=== PATIENT | female | born 1970 | race Caucasian/White ===

== ENCOUNTER 2024-10-01 06:00 | Emergency (ER) | payer MEDICAID ==
[2024-10-01] MEDS ORDERED: Sodium Chloride 0.9% 10 ML Syringe FLUSH PRN (06:25)
[2024-10-01 06:33] LABS: BASOPHILS ABSOLUTE AUTO 0.1 x10^3/uL (0.0-0.2); BASOPHILS PERCENT AUTO 0.4 % (0.2-1.2); EOSINOPHILS ABSOLUTE AUTO 0.2 x10^3/uL (0.0-0.5); EOSINOPHILS PERCENT AUTO 0.8 % (0.0-4.0); HEMATOCRIT 29.5 % (33.0-47.0); HEMOGLOBIN 10.6 g/dL (12.0-16.0); IMMATURE GRAN ABSOLUTE AUTO 0.03 x10^3/uL (0.00-0.07); LYMPHOCYTES ABSOLUTE AUTO 1.8 x10^3/uL (1.0-4.8); LYMPHOCYTES PERCENT AUTO 9.9 % (25.0-50.0); MEAN CORPUSCULAR HEMOGLOBIN 31.6 pg (26.0-32.0); MEAN CORPUSCULAR HGB CONC 35.9 g/dL (32.0-36.0); MEAN CORPUSCULAR VOLUME 88.1 fL (78.0-93.0); MONOCYTES ABSOLUTE AUTO 0.7 x10^3/uL (0.0-0.8); MONOCYTES PERCENT AUTO 3.7 % (2.0-11.0); RED BLOOD CELL COUNT 3.35 x10^6/uL (4.00-5.50); WHITE BLOOD CELL COUNT,WBC 17.7 x10^3/uL (4.0-10.0)
[2024-10-01] MEDS: Lactated Ringers 1,000 ML IV ONE (06:40)
[2024-10-01 06:46] LABS: PLATELET COUNT,PLT 357 x10^3/uL (130-400)
[2024-10-01 06:56] LABS: A/G RATIO 1.15; ALANINE AMINOTRANSFERASE,ALT 40 U/L (14-59); ALBUMIN 3.9 g/dL (3.4-5.0); ALKALINE PHOSPHATASE 119 U/L (46-116); ASPARTATE AMNIOTRANSFERASE,AST 37 U/L (15-37); BILIRUBIN TOTAL 1.3 mg/dL (0.2-1.0); BLOOD UREA NITROGEN,BUN 6 mg/dL (7-18); C-REACTIVE PROTEIN 4.51 mg/dL (<=0.50); CALCIUM 9.6 mg/dL (8.5-10.1); CARBON DIOXIDE,CO2 22 mmol/L (21-32); CHLORIDE,CL 97 mmol/L (98-107); CREATININE 1.3 mg/dL (0.55-1.02); GLUCOSE RANDOM 113 mg/dL (70-99); PROTEIN TOTAL,TP 7.3 g/dL (6.4-8.2); SODIUM,NA 136 mmol/L (136-145)
[2024-10-01 06:59] LABS: ESTIMATED GFR 49 mL/min (>=60)
[2024-10-01] MEDS: Ondansetron 4 MG/2 ML SDV IVPUSH ONE (06:59)
[2024-10-01] MEDS: LORazepam 2 MG/ML SDV IVPUSH ONE (07:00)
[2024-10-01] MEDS: Iopamidol 612 MG/ML 100 ML Bottle IVPUSH ONE (08:01)
[2024-10-01] MEDS: Potassium Bicarbonate 25 MEQ Tab.EFF PO STA (08:07)
[2024-10-01] MEDS: Prochlorperazine 10 MG/2 ML SDV IV ONE (08:11)
== END 2024-10-01 08:19 | disposition home or self-care (01) ==
LOC: VM.ED 06:00
DX: K52.9 Noninfective gastroenteritis and colitis, unspecified (principal); E86.0 Dehydration
CPT/HCPCS: 36415; 74177; 80053; 85025; 86140; 96374; 96375; 99284; 99284-25; A9270-GY; J0780; J2060; J2405; J7120; Q9967

== ENCOUNTER 2024-10-02 12:43 | Emergency (ER) | payer MEDICAID ==
[2024-10-02] MEDS ORDERED: Sodium Chloride 0.9% 1,000 ML IV ONE (12:57)
[2024-10-02] MEDS ORDERED: Sodium Chloride 0.9% 10 ML Syringe FLUSH PRN (12:57)
[2024-10-02] MEDS ORDERED: Ondansetron 4 MG/2 ML SDV IM ONE (12:57)
[2024-10-02 13:18] LABS: BASOPHILS ABSOLUTE AUTO 0.1 x10^3/uL (0.0-0.2); BASOPHILS PERCENT AUTO 0.5 % (0.2-1.2); EOSINOPHILS ABSOLUTE AUTO 0.1 x10^3/uL (0.0-0.5); EOSINOPHILS PERCENT AUTO 1.5 % (0.0-4.0); HEMATOCRIT 28.4 % (33.0-47.0); HEMOGLOBIN 9.9 g/dL (12.0-16.0); IMMATURE GRAN ABSOLUTE AUTO 0.04 x10^3/uL (0.00-0.07); LYMPHOCYTES ABSOLUTE AUTO 2.1 x10^3/uL (1.0-4.8); LYMPHOCYTES PERCENT AUTO 21.7 % (25.0-50.0); MEAN CORPUSCULAR HEMOGLOBIN 31.5 pg (26.0-32.0); MEAN CORPUSCULAR HGB CONC 34.9 g/dL (32.0-36.0); MEAN CORPUSCULAR VOLUME 90.4 fL (78.0-93.0); MONOCYTES ABSOLUTE AUTO 0.5 x10^3/uL (0.0-0.8); MONOCYTES PERCENT AUTO 4.8 % (2.0-11.0); NEUTROPHILS ABSOLUTE AUTO 6.7 x10^3/uL (1.8-7.7); NEUTROPHILS PERCENT AUTO 71.1 % (50.0-80.0); PLATELET COUNT,PLT 327 x10^3/uL (130-400); RED BLOOD CELL COUNT 3.14 x10^6/uL (4.00-5.50); WHITE BLOOD CELL COUNT,WBC 9.5 x10^3/uL (4.0-10.0)
[2024-10-02] MEDS: Lactated Ringers 1,000 ML IV ONE (13:31)
[2024-10-02 13:34] LABS: A/G RATIO 1.16; ALBUMIN 3.6 g/dL (3.4-5.0); BILIRUBIN TOTAL 0.7 mg/dL (0.2-1.0); C-REACTIVE PROTEIN 3.68 mg/dL (<=0.50); CALCIUM 8.9 mg/dL (8.5-10.1); CREATININE 1.2 mg/dL (0.55-1.02); EST CRCL DRUG DOSING (CG) 54.69 mL/min; POTASSIUM,K 3.8 mmol/L (3.5-5.1); PROTEIN TOTAL,TP 6.7 g/dL (6.4-8.2)
[2024-10-02 13:35] LABS: ANION GAP 17.8 mmol/L (5-15)
[2024-10-02] MEDS: Ondansetron 4 MG/2 ML SDV IVPUSH ONE (14:32)
[2024-10-02] MEDS ORDERED: Famotidine 20 MG Tab PO SCH (21:00)
== END 2024-10-02 15:45 | disposition designated cancer center or children's hospital (05) ==
LOC: VM.ED 12:43
DX: A04.72 Enterocolitis due to Clostridium difficile, not specified as recurrent (principal); F41.9 Anxiety disorder, unspecified; F10.20 Alcohol dependence, uncomplicated; Z79.899 Other long term (current) drug therapy
CPT/HCPCS: 36415; 80053; 83605; 85025; 86140; 96361; 96374; 99284; 99285-25; J2405; J7120

== ENCOUNTER 2024-10-08 13:02 | Inpatient (IN) | payer MEDICAID ==
[2024-10-08] MEDS ORDERED: Sodium Chloride 0.9% 10 ML Syringe FLUSH PRN (13:11)
[2024-10-08 13:32] LABS: BASOPHILS PERCENT AUTO 0.2 % (0.2-1.2); HEMATOCRIT 31.6 % (33.0-47.0); HEMOGLOBIN 11.3 g/dL (12.0-16.0); IMMATURE GRAN ABSOLUTE AUTO 0.04 x10^3/uL (0.00-0.07); LYMPHOCYTES ABSOLUTE AUTO 1.4 x10^3/uL (1.0-4.8); LYMPHOCYTES PERCENT AUTO 11.2 % (25.0-50.0); MEAN CORPUSCULAR HEMOGLOBIN 31.6 pg (26.0-32.0); MEAN CORPUSCULAR HGB CONC 35.8 g/dL (32.0-36.0); MEAN CORPUSCULAR VOLUME 88.3 fL (78.0-93.0); MONOCYTES ABSOLUTE AUTO 0.6 x10^3/uL (0.0-0.8); MONOCYTES PERCENT AUTO 4.6 % (2.0-11.0); NEUTROPHILS ABSOLUTE AUTO 10.2 x10^3/uL (1.8-7.7); NEUTROPHILS PERCENT AUTO 83.7 % (50.0-80.0); PLATELET COUNT,PLT 275 x10^3/uL (130-400); RED BLOOD CELL COUNT 3.58 x10^6/uL (4.00-5.50); WHITE BLOOD CELL COUNT,WBC 12.2 x10^3/uL (4.0-10.0)
[2024-10-08] MEDS: Ondansetron 4 MG/2 ML SDV IVPUSH ONE (13:39)
[2024-10-08] MEDS: Lactated Ringers 1,000 ML IV ONE (13:39)
[2024-10-08] MEDS: LORazepam 2 MG/ML SDV IVPUSH ONE (13:41)
[2024-10-08] MEDS: Labetalol 20 MG/4 ML Syringe IVPUSH ONE (13:44)
[2024-10-08 13:52] LABS: PROTHROMBIN TIME 10.6 SEC (8.9-11.5); PTT,PARTIAL THROMBOPLSTIN TIME 24.3 SEC (21.9-33.8)
[2024-10-08 13:54] LABS: A/G RATIO 1.23; ALANINE AMINOTRANSFERASE,ALT 48 U/L (14-59); ALBUMIN 4.3 g/dL (3.4-5.0); ALKALINE PHOSPHATASE 124 U/L (46-116); ASPARTATE AMNIOTRANSFERASE,AST 55 U/L (15-37); BILIRUBIN TOTAL 1.2 mg/dL (0.2-1.0); BLOOD UREA NITROGEN,BUN 8 mg/dL (7-18); C-REACTIVE PROTEIN 0.58 mg/dL (<=0.50); CALCIUM 9.3 mg/dL (8.5-10.1); CARBON DIOXIDE,CO2 18 mmol/L (21-32); CHLORIDE,CL 93 mmol/L (98-107); CREATININE 1.5 mg/dL (0.55-1.02); GLUCOSE RANDOM 115 mg/dL (70-99); MAGNESIUM 1.2 mg/dL (1.8-2.4); PROTEIN TOTAL,TP 7.8 g/dL (6.4-8.2); SODIUM,NA 134 mmol/L (136-145)
[2024-10-08 13:58] LABS: ANION GAP 25.5 mmol/L (5-15); ESTIMATED GFR 41 mL/min (>=60); LACTIC ACID 4.1 mmol/L (0.4-2.0); POTASSIUM,K 2.5 mmol/L (3.5-5.1)
[2024-10-08 14:03] LABS: ETHANOL BLOOD MEDICAL < 3 mg/dL (0-3)
[2024-10-08 14:07] LABS: ACETAMINOPHEN 0 ug/ml (10-30)
[2024-10-08] MEDS: NS with KCl 40mEq 1,000 ML IV SCH (14:16)
[2024-10-08] MEDS ORDERED: Flumazenil 0.1 MG/ML 5 ML MDV IVPUSH PRN (15:39)
[2024-10-08] MEDS: Multivitamin Tab PO SCH (17:28)
[2024-10-08] MEDS: PHENobarbitaL sodium 260 MG in Sodium Chloride 0.9% 100 ML IV ONE (17:28)
[2024-10-08] MEDS: Folic Acid 1 MG Tab PO SCH (17:28)
[2024-10-08] MEDS: Propranolol 80 MG Cap.ER PO SCH (17:29)
[2024-10-08] MEDS: Thiamine 100 MG Tab PO SCH (17:29)
[2024-10-08] MEDS: LORazepam 2 MG/ML SDV IV PRN (19:03)
[2024-10-08] MEDS: Magnesium Sulfate/Water Premix 4 GM in Premix Bag 1 BAG IV ONE (19:27)
[2024-10-08] MEDS: cloNIDine 0.1 MG Tab PO SCH (21:49)
[2024-10-08] MEDS: VANCOmycin 125 MG Cap PO SCH (21:50)
[2024-10-08] MEDS: Potassium Chloride 20 MEQ Tab.ER PO SCH (21:50)
[2024-10-09] MEDS: Omeprazole 20 MG Cap.CR PO SCH (06:10)
[2024-10-09 08:33] LABS: BASOPHILS PERCENT AUTO 0.6 % (0.2-1.2); EOSINOPHILS ABSOLUTE AUTO 0.1 x10^3/uL (0.0-0.5); HEMATOCRIT 27.8 % (33.0-47.0); HEMOGLOBIN 9.4 g/dL (12.0-16.0); IMMATURE GRAN ABSOLUTE AUTO 0.01 x10^3/uL (0.00-0.07); LYMPHOCYTES ABSOLUTE AUTO 2.2 x10^3/uL (1.0-4.8); LYMPHOCYTES PERCENT AUTO 42.8 % (25.0-50.0); MEAN CORPUSCULAR HEMOGLOBIN 31.5 pg (26.0-32.0); MEAN CORPUSCULAR HGB CONC 33.8 g/dL (32.0-36.0); MEAN CORPUSCULAR VOLUME 93.3 fL (78.0-93.0); MONOCYTES ABSOLUTE AUTO 0.5 x10^3/uL (0.0-0.8); MONOCYTES PERCENT AUTO 9.6 % (2.0-11.0); NEUTROPHILS ABSOLUTE AUTO 2.3 x10^3/uL (1.8-7.7); NEUTROPHILS PERCENT AUTO 44.8 % (50.0-80.0); PLATELET COUNT,PLT 193 x10^3/uL (130-400); RED BLOOD CELL COUNT 2.98 x10^6/uL (4.00-5.50)
[2024-10-09 08:57] LABS: A/G RATIO 1.14; ALBUMIN 3.2 g/dL (3.4-5.0); BILIRUBIN TOTAL 0.8 mg/dL (0.2-1.0); CREATININE 1.4 mg/dL (0.55-1.02); EST CRCL DRUG DOSING (CG) 46.88 mL/min; MAGNESIUM 2.4 mg/dL (1.8-2.4); POTASSIUM,K 3.8 mmol/L (3.5-5.1)
[2024-10-09] MEDS: Escitalopram 10 MG Tab PO SCH (08:58)
[2024-10-09] MEDS: Furosemide 20 MG Tab PO SCH (08:58)
[2024-10-09] MEDS: PHENobarbital Sodium 65 MG/ML SDV IVPUSH SCH (08:59)
[2024-10-09] MEDS: Lisinopril 20 MG Tab PO SCH (09:01)
[2024-10-09 09:06] LABS: ANION GAP 13.8 mmol/L (5-15)
[2024-10-09 09:29] LABS: AMPHETAMINES SCREEN, URINE NEGATIVE (NEGATIVE); BARBITURATE SCREEN,URINE POSITIVE (NEGATIVE); BENZODIAZEPINES SCREEN,URINE POSITIVE (NEGATIVE); BUPRENORPHINE SCREEN,URINE NEGATIVE (NEGATIVE); COCAINE METABOLITES,URINE NEGATIVE (NEGATIVE); METHADONE SCREEN, URINE NEGATIVE (NEGATIVE); METHAMPHETAMINE SCREEN, URINE NEGATIVE (NEGATIVE); OXYCODONE SCREEN,URINE NEGATIVE (NEGATIVE); PCP SCREEN,URINE NEGATIVE (NEGATIVE); THC SCREEN,URINE 50 NG/ML NEGATIVE (NEGATIVE)
[2024-10-09] MEDS: Haloperidol Lactate 5 MG/ML SDV IV PRN (11:20)
[2024-10-09] MEDS: Sodium Chloride 0.9% 1,000 ML IV ONE ×2 (17:20→22:55)
[2024-10-09] MEDS: Naltrexone 50 MG Tab PO SCH (22:07)
[2024-10-10] MEDS: Ondansetron 4 MG/2 ML SDV IVPUSH PRN (07:44)
[2024-10-10 08:07] LABS: BASOPHILS PERCENT AUTO 0.3 % (0.2-1.2); EOSINOPHILS ABSOLUTE AUTO 0.2 x10^3/uL (0.0-0.5); EOSINOPHILS PERCENT AUTO 3.2 % (0.0-4.0); HEMATOCRIT 25.2 % (33.0-47.0); HEMOGLOBIN 8.2 g/dL (12.0-16.0); IMMATURE GRAN ABSOLUTE AUTO 0.02 x10^3/uL (0.00-0.07); LYMPHOCYTES ABSOLUTE AUTO 2.1 x10^3/uL (1.0-4.8); LYMPHOCYTES PERCENT AUTO 34.6 % (25.0-50.0); MEAN CORPUSCULAR HGB CONC 32.5 g/dL (32.0-36.0); MEAN CORPUSCULAR VOLUME 98.4 fL (78.0-93.0); MONOCYTES ABSOLUTE AUTO 0.5 x10^3/uL (0.0-0.8); MONOCYTES PERCENT AUTO 8.1 % (2.0-11.0); NEUTROPHILS ABSOLUTE AUTO 3.2 x10^3/uL (1.8-7.7); NEUTROPHILS PERCENT AUTO 53.5 % (50.0-80.0); PLATELET COUNT,PLT 175 x10^3/uL (130-400); RED BLOOD CELL COUNT 2.56 x10^6/uL (4.00-5.50)
[2024-10-10 08:28] LABS: ALBUMIN 2.5 g/dL (3.4-5.0); BILIRUBIN TOTAL 0.3 mg/dL (0.2-1.0); CALCIUM 7.8 mg/dL (8.5-10.1); CREATININE 1.1 mg/dL (0.55-1.02); EST CRCL DRUG DOSING (CG) 59.66 mL/min; POTASSIUM,K 4.7 mmol/L (3.5-5.1)
[2024-10-10 08:29] LABS: ANION GAP 12.7 mmol/L (5-15)
[2024-10-10] MEDS: Lactobacillus Rhamnosus GG (Probiotic) Cap PO SCH (09:35)
[2024-10-10] MEDS: Acetaminophen 325 MG Tab PO PRN (13:54)
[2024-10-11 07:21] LABS: BASOPHILS PERCENT AUTO 0.5 % (0.2-1.2); EOSINOPHILS ABSOLUTE AUTO 0.3 x10^3/uL (0.0-0.5); EOSINOPHILS PERCENT AUTO 4.3 % (0.0-4.0); HEMATOCRIT 26.1 % (33.0-47.0); HEMOGLOBIN 8.5 g/dL (12.0-16.0); IMMATURE GRAN ABSOLUTE AUTO 0.02 x10^3/uL (0.00-0.07); LYMPHOCYTES PERCENT AUTO 31.2 % (25.0-50.0); MEAN CORPUSCULAR HEMOGLOBIN 32.2 pg (26.0-32.0); MEAN CORPUSCULAR HGB CONC 32.6 g/dL (32.0-36.0); MEAN CORPUSCULAR VOLUME 98.9 fL (78.0-93.0); MONOCYTES ABSOLUTE AUTO 0.5 x10^3/uL (0.0-0.8); MONOCYTES PERCENT AUTO 7.3 % (2.0-11.0); NEUTROPHILS ABSOLUTE AUTO 3.7 x10^3/uL (1.8-7.7); NEUTROPHILS PERCENT AUTO 56.4 % (50.0-80.0); PLATELET COUNT,PLT 162 x10^3/uL (130-400); RED BLOOD CELL COUNT 2.64 x10^6/uL (4.00-5.50); WHITE BLOOD CELL COUNT,WBC 6.5 x10^3/uL (4.0-10.0)
[2024-10-11 07:26] LABS: A/G RATIO 0.96; ALBUMIN 2.5 g/dL (3.4-5.0); ANION GAP 13.8 mmol/L (5-15); BILIRUBIN TOTAL 0.3 mg/dL (0.2-1.0); CALCIUM 8.3 mg/dL (8.5-10.1); EST CRCL DRUG DOSING (CG) 65.63 mL/min; POTASSIUM,K 4.8 mmol/L (3.5-5.1); PROTEIN TOTAL,TP 5.1 g/dL (6.4-8.2)
== END 2024-10-11 14:10 | disposition home or self-care (01) | DRG 897 ==
LOC: VM.ED 13:02 → VM.MS 14:47
PROVIDERS: ADMIT Nurse Practitioner Family; ATTEND Nurse Practitioner Family
DX: F10.131 Alcohol abuse with withdrawal delirium (principal); A04.72 Enterocolitis due to Clostridium difficile, not specified as recurrent; E87.1 Hypo-osmolality and hyponatremia; F41.9 Anxiety disorder, unspecified; E87.6 Hypokalemia; I10 Essential (primary) hypertension; K21.9 Gastro-esophageal reflux disease without esophagitis; F41.8 Other specified anxiety disorders; R79.89 Other specified abnormal findings of blood chemistry; Z98.890 Other specified postprocedural states; Z79.1 Long term (current) use of non-steroidal anti-inflammatories (NSAID); Z79.2 Long term (current) use of antibiotics; Z79.899 Other long term (current) drug therapy; Z87.891 Personal history of nicotine dependence; F15.90 Other stimulant use, unspecified, uncomplicated
CPT/HCPCS: 36415; 80053; 80143; 80305-QW; 80307; 81025; 82140; 83605; 83735; 85025; 85610; 85730; 86140; 96361; 96365; 96375; 99284; 99285-25; A9270-GY; J1630; J1920; J2060; J2405; J2560; J3475; J3480; J3490; J7030; J7120; Q3014

== ENCOUNTER 2024-10-19 12:59 | Emergency (ER) | payer MEDICAID ==
[2024-10-19 13:38] LABS: BASOPHILS ABSOLUTE AUTO 0.1 x10^3/uL (0.0-0.2); BASOPHILS PERCENT AUTO 1.2 % (0.2-1.2); HEMATOCRIT 31.9 % (33.0-47.0); HEMOGLOBIN 10.9 g/dL (12.0-16.0); IMMATURE GRAN ABSOLUTE AUTO 0.01 x10^3/uL (0.00-0.07); LYMPHOCYTES ABSOLUTE AUTO 1.3 x10^3/uL (1.0-4.8); LYMPHOCYTES PERCENT AUTO 21.6 % (25.0-50.0); MEAN CORPUSCULAR HEMOGLOBIN 32.4 pg (26.0-32.0); MEAN CORPUSCULAR HGB CONC 34.2 g/dL (32.0-36.0); MEAN CORPUSCULAR VOLUME 94.9 fL (78.0-93.0); MONOCYTES ABSOLUTE AUTO 0.4 x10^3/uL (0.0-0.8); MONOCYTES PERCENT AUTO 6.1 % (2.0-11.0); NEUTROPHILS ABSOLUTE AUTO 4.2 x10^3/uL (1.8-7.7); NEUTROPHILS PERCENT AUTO 70.9 % (50.0-80.0); PLATELET COUNT,PLT 300 x10^3/uL (130-400); RED BLOOD CELL COUNT 3.36 x10^6/uL (4.00-5.50); WHITE BLOOD CELL COUNT,WBC 5.9 x10^3/uL (4.0-10.0)
[2024-10-19] MEDS: LORazepam 2 MG/ML SDV IVPUSH ONE ×2 (13:45→14:50)
[2024-10-19] MEDS: Ondansetron 4 MG/2 ML SDV IVPUSH ONE (13:55)
[2024-10-19 13:59] LABS: A/G RATIO 1.09; ALANINE AMINOTRANSFERASE,ALT 43 U/L (14-59); ALBUMIN 3.7 g/dL (3.4-5.0); ALKALINE PHOSPHATASE 110 U/L (46-116); ASPARTATE AMNIOTRANSFERASE,AST 49 U/L (15-37); BILIRUBIN TOTAL 0.9 mg/dL (0.2-1.0); BLOOD UREA NITROGEN,BUN 6 mg/dL (7-18); CALCIUM 8.9 mg/dL (8.5-10.1); CARBON DIOXIDE,CO2 18 mmol/L (21-32); CHLORIDE,CL 94 mmol/L (98-107); CREATININE 1.1 mg/dL (0.55-1.02); GLUCOSE RANDOM 76 mg/dL (70-99); POTASSIUM,K 3.3 mmol/L (3.5-5.1); PROTEIN TOTAL,TP 7.1 g/dL (6.4-8.2); SODIUM,NA 134 mmol/L (136-145)
[2024-10-19 14:01] LABS: ANION GAP 25.3 mmol/L (5-15); ESTIMATED GFR 60 mL/min (>=60)
[2024-10-19 14:11] LABS: ETHANOL BLOOD MEDICAL < 3 mg/dL (0-3)
[2024-10-19] MEDS: LORazepam 2 MG/ML SDV IVPUSH PRN (16:54)
== END 2024-10-19 18:52 | disposition home or self-care (01) ==
LOC: VM.ED 12:59
DX: F10.230 Alcohol dependence with withdrawal, uncomplicated (principal); R19.7 Diarrhea, unspecified; I10 Essential (primary) hypertension; Z79.899 Other long term (current) drug therapy
CPT/HCPCS: 36415; 80053; 80307; 85025; 96374; 96375; 96376; 99284; J2060; J2405

== ENCOUNTER 2024-10-22 07:20 | Emergency (ER) | payer MEDICAID ==
[2024-10-22 07:55] LABS: BASOPHILS ABSOLUTE AUTO 0.1 x10^3/uL (0.0-0.2); EOSINOPHILS PERCENT AUTO 0.1 % (0.0-4.0); HEMATOCRIT 29.4 % (33.0-47.0); HEMOGLOBIN 10.4 g/dL (12.0-16.0); IMMATURE GRAN ABSOLUTE AUTO 0.01 x10^3/uL (0.00-0.07); LYMPHOCYTES ABSOLUTE AUTO 1.5 x10^3/uL (1.0-4.8); LYMPHOCYTES PERCENT AUTO 20.8 % (25.0-50.0); MEAN CORPUSCULAR HGB CONC 35.4 g/dL (32.0-36.0); MEAN CORPUSCULAR VOLUME 90.5 fL (78.0-93.0); MONOCYTES ABSOLUTE AUTO 0.3 x10^3/uL (0.0-0.8); MONOCYTES PERCENT AUTO 3.8 % (2.0-11.0); NEUTROPHILS ABSOLUTE AUTO 5.2 x10^3/uL (1.8-7.7); NEUTROPHILS PERCENT AUTO 74.2 % (50.0-80.0); PLATELET COUNT,PLT 290 x10^3/uL (130-400); RED BLOOD CELL COUNT 3.25 x10^6/uL (4.00-5.50)
[2024-10-22] MEDS: Lactated Ringers 1,000 ML IV SCH (07:59)
[2024-10-22] MEDS: Ondansetron 4 MG/2 ML SDV IVPUSH ONE (08:00)
[2024-10-22] MEDS: Thiamine 500 MG in Sodium Chloride 0.9% 100 ML IV ONE (08:00)
[2024-10-22 08:11] LABS: A/G RATIO 1.21; ALBUMIN 3.5 g/dL (3.4-5.0); BILIRUBIN TOTAL 0.3 mg/dL (0.2-1.0); CALCIUM 8.4 mg/dL (8.5-10.1); EST CRCL DRUG DOSING (CG) 65.63 mL/min; MAGNESIUM 1.5 mg/dL (1.8-2.4); PROTEIN TOTAL,TP 6.4 g/dL (6.4-8.2)
[2024-10-22 08:12] LABS: ANION GAP 19.6 mmol/L (5-15); POTASSIUM,K 2.6 mmol/L (3.5-5.1)
[2024-10-22] MEDS: D5%-0.9% NaCl w/ KCl 40 meq 1,000 ML IV SCH (08:32)
[2024-10-22] MEDS: Magnesium Sulfate/Water Premix 2 GM in Premix Bag 1 BAG IV ONE (09:06)
[2024-10-22 09:57] LABS: APPEARANCE,URINE CLEAR (CLEAR); BILIRUBIN,URINE NEGATIVE (NEGATIVE); COLOR,URINE YELLOW (YELLOW); GLUCOSE,URINE NEGATIVE (NEGATIVE); KETONES,URINE NEGATIVE (NEGATIVE); LEUKOCYTE ESTERASE,URINE NEGATIVE (NEGATIVE); NITRITE,URINE NEGATIVE (NEGATIVE); OCCULT BLOOD,URINE NEGATIVE (NEGATIVE); PH,URINE 6.5 (5.0-8.0); PROTEIN,URINE NEGATIVE (NEGATIVE); UROBILINOGEN,URINE 0.2 EU/dL (0.2)
[2024-10-22] MEDS: Acetaminophen 325 MG Tab PO ONE (10:00)
[2024-10-22] MEDS: LORazepam 2 MG/ML SDV IVPUSH ONE (10:26)
[2024-10-22] MEDS: Take Home: Ondansetron 4 MG Tab.DIS, 5 Tab Pack PO ONE (13:01)
== END 2024-10-22 13:11 | disposition home or self-care (01) ==
LOC: VM.ED 07:20
DX: F10.139 Alcohol abuse with withdrawal, unspecified (principal); I10 Essential (primary) hypertension; E87.6 Hypokalemia; E83.42 Hypomagnesemia; Y90.4 Blood alcohol level of 80-99 mg/100 ml; Z87.891 Personal history of nicotine dependence; Z79.899 Other long term (current) drug therapy
CPT/HCPCS: 80053; 80307; 81003; 83735; 85025; 96365; 96366; 96367; 96368; 96375; 99284; 99284-25; A9270-GY; J2060; J2405; J3411; J3475; J3480; J7120; Q0162

== ENCOUNTER 2024-10-26 08:31 | Observation (INO) | payer MEDICAID ==
[2024-10-26] MEDS: LORazepam 2 MG/ML SDV IVPUSH ONE (09:01)
[2024-10-26] MEDS: cloNIDine 0.1 MG Tab PO ONE (09:01)
[2024-10-26 09:02] LABS: BASOPHILS ABSOLUTE AUTO 0.1 x10^3/uL (0.0-0.2); BASOPHILS PERCENT AUTO 1.1 % (0.2-1.2); EOSINOPHILS PERCENT AUTO 0.2 % (0.0-4.0); HEMATOCRIT 30.9 % (33.0-47.0); HEMOGLOBIN 11.2 g/dL (12.0-16.0); IMMATURE GRAN ABSOLUTE AUTO 0.01 x10^3/uL (0.00-0.07); LYMPHOCYTES ABSOLUTE AUTO 1.2 x10^3/uL (1.0-4.8); LYMPHOCYTES PERCENT AUTO 26.5 % (25.0-50.0); MEAN CORPUSCULAR HEMOGLOBIN 31.6 pg (26.0-32.0); MEAN CORPUSCULAR HGB CONC 36.2 g/dL (32.0-36.0); MEAN CORPUSCULAR VOLUME 87.3 fL (78.0-93.0); MONOCYTES ABSOLUTE AUTO 0.3 x10^3/uL (0.0-0.8); NEUTROPHILS ABSOLUTE AUTO 3.1 x10^3/uL (1.8-7.7); PLATELET COUNT,PLT 214 x10^3/uL (130-400); RED BLOOD CELL COUNT 3.54 x10^6/uL (4.00-5.50); WHITE BLOOD CELL COUNT,WBC 4.7 x10^3/uL (4.0-10.0)
[2024-10-26] MEDS: Ondansetron 4 MG/2 ML SDV IVPUSH ONE (09:02)
[2024-10-26] MEDS: Lactated Ringers 1,000 ML IV ONE (09:07)
[2024-10-26 09:26] LABS: A/G RATIO 1.19; ALANINE AMINOTRANSFERASE,ALT 61 U/L (14-59); ALBUMIN 3.7 g/dL (3.4-5.0); ALKALINE PHOSPHATASE 128 U/L (46-116); AMYLASE 60 U/L (25-115); ASPARTATE AMNIOTRANSFERASE,AST 114 U/L (15-37); BILIRUBIN TOTAL 0.6 mg/dL (0.2-1.0); BLOOD UREA NITROGEN,BUN 4 mg/dL (7-18); C-REACTIVE PROTEIN 0.79 mg/dL (<=0.50); CALCIUM 8.7 mg/dL (8.5-10.1); CARBON DIOXIDE,CO2 22 mmol/L (21-32); CHLORIDE,CL 96 mmol/L (98-107); CREATININE 1.5 mg/dL (0.55-1.02); EST CRCL DRUG DOSING (CG) 43.75 mL/min; GLUCOSE RANDOM 111 mg/dL (70-99); MAGNESIUM 1.2 mg/dL (1.8-2.4); PHOSPHORUS 2.6 mg/dL (2.6-4.7); PROTEIN TOTAL,TP 6.8 g/dL (6.4-8.2); SODIUM,NA 135 mmol/L (136-145); TSH ULTRASENSITIVE 1.903 uIU/mL (0.358-3.74)
[2024-10-26 09:27] LABS: ANION GAP 19.4 mmol/L (5-15); ESTIMATED GFR 41 mL/min (>=60); ETHANOL BLOOD MEDICAL < 3 mg/dL (0-3); POTASSIUM,K 2.4 mmol/L (3.5-5.1)
[2024-10-26] MEDS: Potassium Chloride Riders 20 MEQ in Premix Bag 1 BAG IV ONE (09:30)
[2024-10-26 09:31] LABS: PROTHROMBIN TIME 10.6 SEC (8.9-11.5); PTT,PARTIAL THROMBOPLSTIN TIME 24.7 SEC (21.9-33.8)
[2024-10-26] MEDS: Pantoprazole 40 MG Vial IVPUSH ONE (10:05)
[2024-10-26 10:17] LABS: AMPHETAMINES SCREEN, URINE NEGATIVE (NEGATIVE); BARBITURATE SCREEN,URINE POSITIVE (NEGATIVE)
[2024-10-26 10:18] LABS: BUPRENORPHINE SCREEN,URINE NEGATIVE (NEGATIVE)
[2024-10-26 10:19] LABS: COCAINE METABOLITES,URINE NEGATIVE (NEGATIVE); METHADONE SCREEN, URINE NEGATIVE (NEGATIVE); METHAMPHETAMINE SCREEN, URINE NEGATIVE (NEGATIVE); OXYCODONE SCREEN,URINE NEGATIVE (NEGATIVE); PCP SCREEN,URINE NEGATIVE (NEGATIVE); THC SCREEN,URINE 50 NG/ML NEGATIVE (NEGATIVE)
[2024-10-26 10:20] LABS: BENZODIAZEPINES SCREEN,URINE POSITIVE (NEGATIVE)
[2024-10-26] MEDS: D5 1/2 NS w/ 40 mEq/L KCl 1,000 ML IV SCH (10:25)
[2024-10-26] MEDS: WATER IV ONE (12:24)
[2024-10-26] MEDS: MAGNESIUM SULFATE IV ONE (12:24)
[2024-10-26] MEDS ORDERED: MAGNESIUM SULFATE IV ONE (12:30)
[2024-10-26] MEDS ORDERED: WATER IV ONE (12:30)
[2024-10-26] MEDS: Multivitamin Tab PO SCH (13:42)
[2024-10-26] MEDS: Thiamine 100 MG Tab PO SCH (13:42)
[2024-10-26] MEDS: Folic Acid 1 MG Tab PO SCH (13:42)
[2024-10-26] MEDS: Famotidine 20 MG Tab PO SCH (13:58)
[2024-10-26 15:08] LABS: APPEARANCE,URINE SLIGHTLY CLOUDY (CLEAR); BILIRUBIN,URINE NEGATIVE (NEGATIVE); COLOR,URINE YELLOW (YELLOW); GLUCOSE,URINE NEGATIVE (NEGATIVE); KETONES,URINE NEGATIVE (NEGATIVE); LEUKOCYTE ESTERASE,URINE SMALL (NEGATIVE); NITRITE,URINE NEGATIVE (NEGATIVE); OCCULT BLOOD,URINE NEGATIVE (NEGATIVE); PROTEIN,URINE NEGATIVE (NEGATIVE); UROBILINOGEN,URINE 0.2 EU/dL (0.2)
[2024-10-26 15:12] LABS: RBC,URINE 0-5 /HPF (NOT SEEN); WBC,URINE 0-5 /HPF (NOT SEEN)
[2024-10-26 15:13] LABS: BACTERIA,URINE MANY /HPF (NOT SEEN); CALCIUM OXALATE CRYSTALS,URINE FEW /HPF (NOT SEEN); SQUAMOUS EPITHELIAL CELLS,UR FEW /HPF (NOT SEEN)
[2024-10-26] MEDS: LORazepam 0.5 MG Tab PO ONE (15:43)
[2024-10-26] MEDS: Ondansetron 4 MG Tab.DIS PO PRN (15:44)
[2024-10-26 17:18] LABS: MAGNESIUM 2.3 mg/dL (1.8-2.4)
[2024-10-26 17:19] LABS: POTASSIUM,K 2.6 mmol/L (3.5-5.1)
[2024-10-26] MEDS: Potassium Chloride 20 MEQ Tab.ER PO SCH (18:35)
[2024-10-26] MEDS: Enoxaparin 40 MG/0.4 ML Syringe SUBCUT SCH (20:12)
[2024-10-26] MEDS: QUEtiapine 25 MG Tab PO SCH (20:14)
[2024-10-26] MEDS ORDERED: Famotidine 20 MG Tab PO SCH (21:00)
[2024-10-27] MEDS: Acetaminophen 325 MG Tab PO PRN (03:43)
[2024-10-27 07:26] LABS: HEMATOCRIT 27.7 % (33.0-47.0); HEMOGLOBIN 9.5 g/dL (12.0-16.0); MEAN CORPUSCULAR HGB CONC 34.3 g/dL (32.0-36.0); MEAN CORPUSCULAR VOLUME 93.3 fL (78.0-93.0); PLATELET COUNT,PLT 149 x10^3/uL (130-400); RED BLOOD CELL COUNT 2.97 x10^6/uL (4.00-5.50); WHITE BLOOD CELL COUNT,WBC 3.7 x10^3/uL (4.0-10.0)
[2024-10-27 07:46] LABS: A/G RATIO 1.08; ALBUMIN 2.8 g/dL (3.4-5.0); BILIRUBIN TOTAL 0.4 mg/dL (0.2-1.0); CALCIUM 8.5 mg/dL (8.5-10.1); CREATININE 1.5 mg/dL (0.55-1.02); EST CRCL DRUG DOSING (CG) 43.61 mL/min; MAGNESIUM 2.1 mg/dL (1.8-2.4); POTASSIUM,K 3.5 mmol/L (3.5-5.1); PROTEIN TOTAL,TP 5.4 g/dL (6.4-8.2)
[2024-10-27 07:47] LABS: ANION GAP 11.5 mmol/L (5-15)
[2024-10-27 08:10] LABS: EOSINOPHILS PERCENT MAN 1 % (0-4); LYMPHOCYTES ABSOLUTE MAN 2.5 x10^3/uL (1.0-4.8); LYMPHOCYTES PERCENT MAN 67 % (25-50); MONOCYTES ABSOLUTE MAN 0.2 x10^3/uL (0.0-0.8); MONOCYTES PERCENT MAN 6 % (2-11); SEG NEUTROPHILS PERCENT MAN 26 % (50-80)
[2024-10-27] MEDS: cloNIDine 0.1 MG Tab PO SCH (08:42)
[2024-10-27] MEDS: Escitalopram 10 MG Tab PO SCH (08:42)
[2024-10-27] MEDS: Sodium Chloride 0.9% 10 ML Syringe FLUSH PRN (08:49)
[2024-10-27] MEDS: LORazepam 0.5 MG Tab PO ONE ×2 (11:14→14:44)
[2024-10-27] MEDS: Melatonin 3 MG Tab PO PRN (21:07)
[2024-10-27] MEDS: LORazepam 1 MG Tab PO PRN (23:47)
[2024-10-28 08:31] LABS: BASOPHILS PERCENT AUTO 1.1 % (0.2-1.2); EOSINOPHILS ABSOLUTE AUTO 0.2 x10^3/uL (0.0-0.5); EOSINOPHILS PERCENT AUTO 6.3 % (0.0-4.0); HEMATOCRIT 29.7 % (33.0-47.0); HEMOGLOBIN 9.9 g/dL (12.0-16.0); IMMATURE GRAN ABSOLUTE AUTO 0.01 x10^3/uL (0.00-0.07); LYMPHOCYTES ABSOLUTE AUTO 1.5 x10^3/uL (1.0-4.8); LYMPHOCYTES PERCENT AUTO 39.9 % (25.0-50.0); MEAN CORPUSCULAR HEMOGLOBIN 31.9 pg (26.0-32.0); MEAN CORPUSCULAR HGB CONC 33.3 g/dL (32.0-36.0); MEAN CORPUSCULAR VOLUME 95.8 fL (78.0-93.0); MONOCYTES ABSOLUTE AUTO 0.3 x10^3/uL (0.0-0.8); MONOCYTES PERCENT AUTO 6.9 % (2.0-11.0); NEUTROPHILS ABSOLUTE AUTO 1.7 x10^3/uL (1.8-7.7); NEUTROPHILS PERCENT AUTO 45.5 % (50.0-80.0); PLATELET COUNT,PLT 141 x10^3/uL (130-400); WHITE BLOOD CELL COUNT,WBC 3.6 x10^3/uL (4.0-10.0)
[2024-10-28 08:55] LABS: A/G RATIO 1.03; ANION GAP 11.7 mmol/L (5-15); BILIRUBIN TOTAL 0.3 mg/dL (0.2-1.0); CALCIUM 8.5 mg/dL (8.5-10.1); CREATININE 1.3 mg/dL (0.55-1.02); EST CRCL DRUG DOSING (CG) 50.31 mL/min; MAGNESIUM 1.6 mg/dL (1.8-2.4); POTASSIUM,K 3.7 mmol/L (3.5-5.1); PROTEIN TOTAL,TP 5.9 g/dL (6.4-8.2)
== END 2024-10-28 11:00 | disposition home or self-care (01) ==
LOC: VM.ED 08:31 → VM.MS 10:01
PROVIDERS: ADMIT Internal Medicine; ATTEND Internal Medicine
DX: K29.20 Alcoholic gastritis without bleeding (principal); E78.00 Pure hypercholesterolemia, unspecified; I10 Essential (primary) hypertension; K21.9 Gastro-esophageal reflux disease without esophagitis; K52.9 Noninfective gastroenteritis and colitis, unspecified; N17.9 Acute kidney failure, unspecified; E87.6 Hypokalemia; Z87.891 Personal history of nicotine dependence; Z59.00 Homelessness unspecified; Z79.899 Other long term (current) drug therapy
CPT/HCPCS: 36415; 80053; 80305-QW; 80307; 81001; 82140; 82150; 83735; 84100; 84132; 84443; 85025; 85610; 85730; 86140; 96361; 96365; 96366; 96367; 96372; 96375; 97161-GP; 97165-GO; 97535-GO; 99284; 99285-25; A9270-GY; G0378; J1650; J2060; J2405; J2470; J3475; J3480; J7120